=== PATIENT | female | born 1990 | race Two or more races ===

== ENCOUNTER 2023-07-28 14:56 | Outpatient (CLI) | payer OTHER | END 2023-07-28 14:57 | disposition home or self-care (01) | LOC: PRENATAL 14:56 | PROVIDERS: ATTEND Obstetrics & Gynecology Maternal & Fetal Medicine | DX: O26.849 Uterine size-date discrepancy, unspecified trimester (principal); O36.8199 Decreased fetal movements, unspecified trimester, other fetus; O99.280 Endocrine, nutritional and metabolic diseases complicating pregnancy, unspecified trimester; O40.1XX0 Polyhydramnios, first trimester, not applicable or unspecified; Z3A.32 32 weeks gestation of pregnancy ==

== ENCOUNTER 2023-08-25 12:55 | Outpatient (CLI) | payer OTHER | END 2023-08-25 12:57 | disposition home or self-care (01) | LOC: PRENATAL 12:55 | PROVIDERS: ATTEND Obstetrics & Gynecology Maternal & Fetal Medicine | DX: O26.849 Uterine size-date discrepancy, unspecified trimester (principal); O36.8199 Decreased fetal movements, unspecified trimester, other fetus; O40.1XX0 Polyhydramnios, first trimester, not applicable or unspecified; Z3A.36 36 weeks gestation of pregnancy ==

== ENCOUNTER 2023-09-03 16:58 | Inpatient (IN) | payer OTHER ==
[~2023-09-03] VITALS: Ht 152.4 cm; Wt 3.6 kg
[2023-09-03] MEDS ORDERED: RINGERS SOLUTION,LACTATED 1,000 ML IV SCH (17:15)
[2023-09-03 17:28] LABS: HEMATOCRIT 31.4 % (36.0-45.00); HEMOGLOBIN 10.7 g/dL (12.0-15.00); MEAN CELL VOLUME 86.7 fL (80.00-100.00); MEAN CORPUSCULAR HEMOGLOBIN 29.6 pg (27.00-32.0); MEAN CORPUSCULAR HGB CONC 34.1 g/dl (32.0-36.0); PH,URINE 5.5 (5.0-8.0); PLATELET COUNT 261 K/uL (150-450); RED BLOOD COUNT 3.62 M/uL (4.00-6.00); RED CELL DISTRIBUTION WIDTH 14.9 % (11.5-14.5); URINE APPEARANCE Turbid; URINE BILIRRUBIN Negative (NEGATIVE); URINE BLOOD Negative; URINE COLOR Yellow; URINE LEUKOCYTE Small; URINE NITRATE Negative; URINE PROTEIN 30 (NEGATIVE)
[2023-09-03 17:32] LABS: URINE RBC 11.3 uL (0.0-20.8); URINE WBC 430.7 uL (0.0-23.2)
[2023-09-03 17:42] LABS: URINE BACTERIA > 9821.5 uL (0.0-1933); URINE EPITHELIAL CELLS > 201.7 uL (0.0-38.8); URINE GLUCOSE 250 MG/DL (NEGATIVE)
[2023-09-03 20:04] LABS: INR 0.95; PARTIAL THROMBOPLASTIN TIME 25.2 SECONDS (22.0-34.0)
[2023-09-03] MEDS ORDERED: OXYTOCIN 10 UNITS/ML VIAL ONE (20:25)
[2023-09-03] MEDS ORDERED: ERYTHROMYCIN BASE 3.5 GM OINT...G. OP ONE (20:25)
[2023-09-03] MEDS ORDERED: CEFAZOLIN SODIUM 1,000 MG VIAL ONE (20:56)
[2023-09-03] MEDS ORDERED: PROMETHAZINE HCL 50 MG/ML AMPUL IM PRN (22:00)
[2023-09-03] MEDS ORDERED: MEPERIDINE HCL/PF 50 MG/ML VIAL IM PRN (22:00)
[2023-09-03 22:22] LABS: HEMATOCRIT 25.4 % (36.0-45.00); MEAN CELL VOLUME 87.1 fL (80.00-100.00); MEAN CORPUSCULAR HGB CONC 34.2 g/dl (32.0-36.0); PLATELET COUNT 206 K/uL (150-450); RED BLOOD COUNT 2.92 M/uL (4.00-6.00); RED CELL DISTRIBUTION WIDTH 14.7 % (11.5-14.5)
[2023-09-03 22:23] LABS: HEMOGLOBIN 8.7 g/dL (12.0-15.00); MEAN CORPUSCULAR HEMOGLOBIN 29.7 pg (27.00-32.0)
[2023-09-03 22:49] LABS: ABG PH 7.229 (7.35-7.45); ABG PO2 19.9 mmHg (80-100); ABG pCO2 55.4 mmHg (35-45)
[2023-09-03 22:50] LABS: BASE EXCESS -5.6 mmol/l; BICARBONATE 22.6 mmol/l (23-25); SaO2 21.6 %; Tco2 24.3 mmol/l; o2 21 %
[2023-09-04] MEDS ORDERED: SIMETHICONE 125 MG CAPSULE PO SCH (08:00)
[2023-09-04] MEDS ORDERED: DOCUSATE SODIUM 100MG CAP PO SCH (08:00)
[2023-09-04] MEDS ORDERED: OxyCODONE HCL/APAP UD (PERCOCET) PO PRN (08:00)
[2023-09-04] MEDS ORDERED: PNV,CALCIUM 72/IRON/FOLIC ACID 1 TAB TABLET PO SCH (08:00)
[2023-09-04 09:21] LABS: MEAN CELL VOLUME 87.6 fL (80.00-100.00); MEAN CORPUSCULAR HEMOGLOBIN 29.7 pg (27.00-32.0); PLATELET COUNT 200 K/uL (150-450); RED BLOOD COUNT 2.86 M/uL (4.00-6.00); RED CELL DISTRIBUTION WIDTH 14.8 % (11.5-14.5)
[2023-09-04 09:33] LABS: HEMOGLOBIN 8.5 g/dL (12.0-15.00)
== END 2023-09-06 13:11 | disposition home or self-care (01) | DRG 785 ==
LOC: OBS/DEL 16:58 → LDR 18:37 → OB/GYN 18:37 → O/R 21:13 → OB/GYN 23:56
PROVIDERS: Obstetrics & Gynecology; ADMIT Obstetrics & Gynecology; ATTEND Obstetrics & Gynecology
PROC: 0UB70ZZ Excision of Bilateral Fallopian Tubes, Open Approach (ICD-10-PCS; 2023-09-03)
PROC: 4A1HXCZ Monitoring of Products of Conception, Cardiac Rate, External Approach (ICD-10-PCS; 2023-09-03)
PROC: 10D00Z1 Extraction of Products of Conception, Low, Open Approach (ICD-10-PCS; principal; 2023-09-03 20:00)
DX: O36.8330 Maternal care for abnormalities of the fetal heart rate or rhythm, third trimester, not applicable or unspecified (principal); Z3A.39 39 weeks gestation of pregnancy; Z37.0 Single live birth; Z20.822 Contact with and (suspected) exposure to COVID-19; Z30.2 Encounter for sterilization

== ENCOUNTER 2023-09-17 23:08 | Emergency (ER) | payer OTHER ==
[~2023-09-17] VITALS: Ht 152.4 cm; Wt 105.2 kg
[2023-09-18] MEDS ORDERED: KETOROLAC TROMETHAMINE 30 MG VIAL IV STA (02:10)
[2023-09-18] MEDS ORDERED: METRONIDAZOLE/SODIUM CHLORIDE 500 MG/100 ML PIGGYBACK IV STA (02:12)
[2023-09-18] MEDS ORDERED: ACETAMINOPHEN 500 MG GEL..CAP PO STA (02:13)
== END 2023-09-18 | disposition home or self-care (01) ==
LOC: ER 23:08
DX: G89.18 Other acute postprocedural pain (principal); Z91.013 Allergy to seafood